=== PATIENT | female | born 1980 | race Caucasian/White ===

== ENCOUNTER 2016-11-10 16:15 | Inpatient (IN) | payer BC, OTHER ==
[~2016-11-10] VITALS: Ht 162.6 cm; Wt 74.8 kg
[2016-11-10 21:00] VITALS: BP 133/78
[2016-11-10] MEDS ORDERED: CLONIDINE HCL 0.1 MG TABLET PO PRN (21:00)
[2016-11-10] MEDS ORDERED: LOPERAMIDE HCL 2 MG CAPSULE PO PRN ×2 (21:00)
[2016-11-10] MEDS ORDERED: MIRALAX 17 GM POWD.PACK PO PRN (21:00)
[2016-11-10] MEDS ORDERED: ONDANSETRON 4 MG/2 ML VIAL IM PRN (21:00)
[2016-11-10] MEDS ORDERED: PATIENT MAY USE OWN MED- MD OK PO SCH (21:00)
[2016-11-10] MEDS ORDERED: ACETAMINOPHEN 325 MG TABLET PO PRN (21:00)
[2016-11-10] MEDS ORDERED: LORAZEPAM 2 MG/1 ML VIAL IM PRN (21:00)
[2016-11-10] MEDS ORDERED: DICYCLOMINE HCL 20 MG TABLET PO PRN (21:00)
[2016-11-10] MEDS ORDERED: MAG HYDROX/AL HYDROX/SIMETH 30 ML LIQUID UDC PO PRN (21:00)
[2016-11-10] MEDS ORDERED: diphenhydrAMINE 50 MG CAPSULE PO PRN (21:00)
[2016-11-10] MEDS ORDERED: IBUPROFEN 600 MG TABLET PO PRN (21:00)
--- NOTE | 2016-11-10 21:00 | NUR ---
Pre-Assessment Patient seen in intake office and patient noted to be stable with no visible signs of withdrawal noted. Patients vital signs rendered and noted as 133/78, 60, 18, 97.9, 99%, 0/10. Patient verbalized allergies to PCN, Bee venom, Horse Dander, and Shellfish. Patient noted with several home medications. Patient was explained the policies and procedures of medical disposal. Patient was able to verbalize understanding. All questions answered. Will continue with admission process on unit.
[2016-11-10] MEDS ORDERED: DULO60CA45 PO (21:45)
[2016-11-10] MEDS ORDERED: LAMO200T PO (21:45)
[2016-11-10 21:54] LABS: *URINE HCG, QUAL NEGATIVE (NEGATIVE)
--- NOTE | 2016-11-10 22:00 | NUR ---
Admission Patient is a 36 year old female from [facility], admitted to [facility] to receive treatment for her Opiate Dependence. Patient is ambulatory with no assistance needed. Patient was escorted on to unit by female BOAT ENGINE MECHANIC where body check was rendered. Skin check rendered with skin noted intact. Patient verbalizes allergies to PCN, Bee venom, Horse Dander, and Shellfish, wishes to be full code, following a regular diet. Height noted as 54 and weight noted as 165lbs. Breathing is even and non labored with no signs of SOB. BUE and BLE noted to be WNL with no edema noted. Lung sounds clear with no cough noted. Bowel sounds are active in all 4 quadrants with LBM noted 11/10/16. Patient verbalizes past medical history as History of Seizures (mar 2013), Fibromyalgia, Osteoarthritis, Anxiety, Bipolar, Depression. Home Medications reconciled. Patient denies any suicidal ideations. She describes her usage as: 1. Methadone, for the past 3 years, slowly tapering to 36mg Daily with last dose noted 11/10/16 0800 36mg Patient explains signs and symptoms as "nausea, vomiting, anxiety, lethargic, body aches, joint aches, and really bad chills." Patient lives in [facility] and is currently unemployed. Admission COWS noted to be 0. All information reviewed with Dr. Sage. All needs attended to promptly. Will continue plan of care as ordered.
[2016-11-10 22:05] LABS: *AMPHETAMINE, URINE NEGATIVE (NEGATIVE); *BARBITURATE, URINE NEGATIVE (NEGATIVE); *CANNABINOID, URINE NEGATIVE (NEGATIVE); *COCCAINE, URINE NEGATIVE (NEGATIVE); *OPIATE, URINE NEGATIVE (NEGATIVE); *PHENCYCLIDINE SCREEN,URINE NEGATIVE (NEGATIVE)
[2016-11-10 22:11] LABS: ETHANOL < 3 MG/DL (0-0)
[2016-11-10 22:14] LABS: ALANINE AMINOTRANSFERASE 21 U/L (14-59); ALKALINE PHOSPHATASE 65 U/L (50-136); ASPARTATE AMINOTRANSFERASE 18 U/L (15-37); BASOPHILS # (AUTO) 0.1 K/uL (0.0-8.0); BASOPHILS % (AUTO) 0.5 % (0.0-2.0); BILIRUBIN,TOTAL 0.2 mg/dL (0.2-1.0); CARBON DIOXIDE 31 mmol/L (21-32); CHLORIDE 103 mmol/L (98-107); EOSINOPHILS # (AUTO) 0.2 K/uL (0.0-0.7); EOSINOPHILS % (AUTO) 2.2 % (0.0-7.0); GLUCOSE 95 mg/dL (74-106); HEMATOCRIT 38.3 % (37-47); LYMPHOCYTES # (AUTO) 3.7 K/UL (0.8-4.8); LYMPHOCYTES % (AUTO) 35.8 % (20.5-51.5); MAGNESIUM 1.8 mg/dL (1.8-2.4); MEAN CORPUSCULAR HEMOGLOBIN 32.7 UUG (27.0-31.0); MEAN CORPUSCULAR HGB CONC 34 g/dL (32.0-37.0); MONOCYTES # (AUTO) 0.7 K/UL (0.1-1.30); MONOCYTES % (AUTO) 6.6 % (0.0-11.0); NEUTROPHILS # (AUTO) 5.6 K/UL (1.8-8.9); NEUTROPHILS % (AUTO) 54.9 % (38.5-71.5); PLATELET COUNT (AUTO) 394 K/UL (150-450); POTASSIUM 3.6 mmol/L (3.5-5.1); RED BLOOD CELL COUNT(AUTO) 3.99 MIL/UL (4.2-5.4); TOTAL PROTEIN, SERUM 7.7 g/dL (6.4-8.2); UREA NITROGEN, BLOOD 19 mg/dL (7-18); WHITE BLOOD COUNT (AUTO) 10.3 K/UL (4.0-11.2)
[2016-11-10 23:00] VITALS: BP 128/82
[2016-11-10] MEDS: LORAZEPAM 1 MG TABLET PO PRN (23:01)
[2016-11-10] MEDS: LAMOTRIGINE 200 MG TABLET PO SCH (23:01)
--- NOTE | 2016-11-10 23:01 | NUR ---
PRN Medication Administration Patient noted to be very restless, verbalizing increased anxiety, and agitation. PRN Ativan 2mg administered as per orders. Will continue to monitor.
[2016-11-10] MEDS ORDERED: LORAZEPAM 1 MG TABLET ONE (23:11)
[2016-11-10] MEDS ORDERED: LAMOTRIGINE 200 MG TABLET ONE (23:12)
[2016-11-11] VITALS (7 sets, daily range): BP systolic 96–124; BP diastolic 51–77
--- NOTE | 2016-11-11 00:15 | NUR ---
PRN Medication Reassessment Patient noted in bed watching TV. Breathing even and non labored. No signs of pain or discomfort noted. Patient is able to verbalize the medication really helped me calm down. I just worked so hard to no smoke and Im worried that I will go back to smoking Allowed patient to verbalize feelings and offered support. Patient was receptive. PRN Ativan noted to be effective. All needs attended to promptly. Will continue to monitor.
[2016-11-11] MEDS ORDERED: GABA-534 PO (04:03)
[2016-11-11] MEDS ORDERED: BETA15CR4 TP (04:03)
[2016-11-11] MEDS ORDERED: DICL2SOL TP (04:03)
[2016-11-11] MEDS ORDERED: EPIN0.3A3 IM (04:03)
[2016-11-11] MEDS ORDERED: VALA100026 PO (04:03)
[2016-11-11] MEDS ORDERED: DULO60CA45 PO (04:03)
[2016-11-11] MEDS ORDERED: LUBI24CA5 PO (04:03)
[2016-11-11] MEDS ORDERED: TRIA1TAB5 PO (04:03)
[2016-11-11] MEDS ORDERED: PREG100C PO (04:03)
[2016-11-11] MEDS ORDERED: POLY10DR3 EACHEYE (04:03)
[2016-11-11] MEDS ORDERED: LAMO200T PO (04:03)
--- NOTE | 2016-11-11 07:10 | NUR ---
End of Shift Patient is in bed sleeping but easily aroused to verbal stimuli. Breathing even and non labored. No signs of pain or discomfort noted. Patient is a 36 year old female admitted on 11/10/16 for Opiate Dependence. Patient noted using methadone and Taper medication will be held for minimum 48 hours after last dose and COWS must be >/12 before administration. Patient verbalizing allergies to PCN, Bee venom, horse dander, and Shellfish, wishes to be full code, following a regular diet, skin noted intact, and placed on fall and seizure precautions. Past medical history of Fibromyalgia, osteoarthritis, anxiety, Bipolar, depression, and history of SZ with last one noted Mar 2015. Patient was given PRN Ativan 2 mg for increased agitation and anxiety with medication noted to be effective. All needs attended to promptly. Will continue plan of care as ordered.
--- NOTE | 2016-11-11 07:30 | NUR ---
START OF SHIFT Pt is a 36 yr old female, A&Ox3. Pt was admitted on 11/10/16 for Methadone Dependence. Pt received Ativan PRN during the night for anxiety. Medication was effective. Pt slept for 5 hrs. Pt is currently in bed resting with respirations even and unlabored. No acute distress noted. Pt states she is "fine" this morning. Skin is intact, warm and dry to touch. No tremors seen or felt. Pt denies any n/v. Safety precautions observed. Call light is within reach. Will continue to monitor.
[2016-11-11] MEDS ORDERED: TUBERCULIN,PURIF.PROT.DERIV. 5 TU/0.1 ML TEST ID ONE (09:00)
[2016-11-11] MEDS: DULOXETINE 60 MG CAPSULE.DR PO SCH (09:01)
[2016-11-11] MEDS: LAMOTRIGINE 200 MG TABLET PO SCH ×2 (09:02→21:26)
[2016-11-11] MEDS: MULTIVITAMINS,THERAPEUTIC TABLET PO SCH (09:02)
[2016-11-11] MEDS: LYRICA 100 MG PO SCH (09:21)
[2016-11-11] MEDS: METHOCARBAMOL 750 MG TABLET PO PRN (09:21)
--- NOTE | 2016-11-11 09:21 | NUR ---
PRN GIVEN Pt c/o generalized pain 05/19 due to her fibromyalgia. Motrin 600mg PO PRN and Robaxin 750mg PO PRN was given as ordered. Medication shon well. Encouraged increase fluid intake. Will continue to monitor.
[2016-11-11] MEDS: LORAZEPAM 1 MG TABLET PO PRN (10:17)
--- NOTE | 2016-11-11 10:21 | NUR ---
PRN GIVEN/ PRN RE-ASSESSMENT Pt c/o anxiety with agitation. Pt is observed with fine tremors. Ativan 2mg PO PRN was given as ordered at 1017. Medication shon well. Motrin PRN and Robaxin PRN was effective. Pt denies any pain or discomfort at this time. Encouraged increase fluid intake. Will continue to monitor.
--- NOTE | 2016-11-11 11:21 | NUR ---
PRN RE-ASSESSMENT Ativan PRN was effective for anxiety. Pt attended group sessions to cope with anxiety level. Will continue to monitor.
--- NOTE | 2016-11-11 14:13 | NUR ---
PRN GIVEN Pt c/o left wrist pain 10/19. Toradol 30mg IM PRN was given as ordered. Medication shon well. Encouraged increase fluid intake.
[2016-11-11] MEDS: BACLOFEN 10 MG TABLET PO SCH ×2 (14:27→21:26)
[2016-11-11] MEDS: CLONIDINE HCL 0.1 MG TABLET PO SCH ×2 (14:27→21:26)
[2016-11-11] MEDS: KETOROLAC TROMETHAMINE 30 MG INJ IM PRN (14:39)
[2016-11-11] MEDS ORDERED: LORAZEPAM 1 MG TABLET PO ONE (17:15)
[2016-11-11] MEDS: NICOTINE POLACRILEX 4 MG GUM-PK OF TEN BC PRN (17:29)
--- NOTE | 2016-11-11 19:10 | NUR ---
END OF SHIFT Pt is a 36 yr old female, A&Ox3. Pt was admitted on 11/10/16 for Methadone Dependence. Pt received Ativan 2mg x1 in the morning and Ativan 1mg one time order at 1700 for increase anxiety. Medication was effective. Last COWS score was 3 at 1600. Pt did not attend group sessions and remained in her room throughout the day. Skin is intact, warm and dry to touch. No tremors seen or felt. Pt denies any n/v. Safety precautions observed. Call light is within reach.
--- NOTE | 2016-11-11 19:20 | NUR ---
Start of Shift Patient Received. Patient is in bed sleeping. Breathing even and on labored. No signs of pain or discomfort noted. Patient is a 36 year old female admitted on 11/10/16 for Opiate Dependence. Patient noted to be using methadone and Taper medication will be held for minimum 48 hours after last dose and COWS must be >/12 before administration. Patient verbalizing allergies to PCN, Bee venom, horse dander, and Shellfish, wishes to be full code, following a regular diet, skin noted intact, and placed on fall and seizure precautions. Past medical history of Fibromyalgia, osteoarthritis, anxiety, Bipolar, depression, and history of SZ with last one noted Mar 2015. Per endorsement, patient was given PRN Ativan 2mg, Ativan 1mg, and PRN Toradol with all medications noted to be effective. All needs attended to promptly. Will continue plan of care as ordered.
[2016-11-11] MEDS: GABAPENTIN 300MG PO SCH (21:26)
[2016-11-12 00:15] VITALS: BP 94/56
[2016-11-12 04:38] VITALS: BP 99/63
[2016-11-12] MEDS: NICOTINE POLACRILEX 4 MG GUM-PK OF TEN BC PRN ×2 (06:38→21:56)
--- NOTE | 2016-11-12 07:08 | NUR ---
End of Shift Patient is in bed, awake, alert and watching TV. Breathing even and non labored. No signs of pain or discomfort noted. Patient is a 36 year old female admitted on 11/10/16 for Opiate Dependence. Patient noted using methadone and Taper medication will be held for minimum 48 hours after last dose and COWS must be >/12 before administration. Patient verbalizing allergies to PCN, Bee venom, horse dander, and Shellfish, full code, regular diet, skin noted intact, and placed on fall and seizure precautions. Past medical history of Fibromyalgia, osteoarthritis, anxiety, Bipolar, depression, and history of SZ with last one noted Mar 2015. Patient was given PRN Nicotine Gum. All needs attended to promptly. Will continue plan of care as ordered.
--- NOTE | 2016-11-12 07:45 | NUR ---
Start of Shift Notes: Received patient in her room. Alert and oriented x 4. Verbally responsive. Able to make needs known. Verbalizes "i feel like cramp and I have high anxiety right now." Respirations even and unlabored. No SOB noted. Skin warm and dry to touch. Abdomen soft and non-distended with (+) BS in all 4 quadrants. No complains of N/V/D or constipation noted. Voids independently. Denies dysuria. Bladder non-distended. Ambulatory ad marlyn with steady gait. Patient is a 36 year old female admitted for methadone dependence who is on PRNs at this time. Prior to admission, patient was using 36 mg of methadone daily x 3 years. Has past medical hx of seizures, fibromyualgia, osteoarthritis, anxiety, bipolar disorder, depression. Has allergies to PCN, bees, dander and shellfish. FULL CODE. Regular diet. On fall and seizure precautions. Educated patient on his current plan of care for the day and his medication regimen. Encouraged oral fluid intake and encouraged group participation to learn new skills to prevent relapse. Will continue to monitor closely.
[2016-11-12 08:00] VITALS: BP 117/65
[2016-11-12] MEDS: DULOXETINE 60 MG CAPSULE.DR PO SCH (08:08)
[2016-11-12] MEDS: KETOROLAC TROMETHAMINE 30 MG INJ IM PRN (08:08)
[2016-11-12] MEDS: CLONIDINE HCL 0.1 MG TABLET PO SCH ×3 (08:08→21:03)
[2016-11-12] MEDS: MULTIVITAMINS,THERAPEUTIC TABLET PO SCH (08:08)
[2016-11-12] MEDS: FAMOTIDINE 20 MG TABLET PO SCH (08:08)
--- NOTE | 2016-11-12 08:08 | NUR ---
PRN Toradol given: Patient noted with complain of 7/10 genealized muscle aches. Unable to be relieved with non-pharmacological intervention. Medicated patient with Toradol 30 mg IM as ordered. Will monitor for effectiveness.
[2016-11-12] MEDS: LAMOTRIGINE 200 MG TABLET PO SCH ×2 (08:09→21:03)
[2016-11-12] MEDS: LYRICA 100 MG PO SCH (08:09)
[2016-11-12] MEDS: BACLOFEN 10 MG TABLET PO SCH ×3 (08:09→21:02)
--- NOTE | 2016-11-12 08:38 | NUR ---
Re-assessment: Per patient, PRN Toradol was mildly effective in reducing patient's pain. PL 4/10.
[2016-11-12] MEDS: HYDROXYZINE PAMOATE 25 MG CAPSULE PO PRN (09:05)
--- NOTE | 2016-11-12 09:05 | NUR ---
Vistaril 50 mg PO given: Patient on routine Clonidine for anxiety and agitation, however, patient verbalizes "I feel like I am having a panic attack." Patient is sobbing and restless, pacing and agitated. Medicated patient with Vistaril 50 mg PO as ordered. Will monitor for effectiveness.
--- NOTE | 2016-11-12 09:11 | NUR ---
MD Communication: Patient noted with COWS 16, noted with restlessness, anxious, agitated, with sweats. Notified MD Sage and gave orders to administer x 1 dose of Subutex 2 mg SL x 1 now. is away from a computer and unable to enter in orders. Orders noted and carried out.
[2016-11-12] MEDS ORDERED: BUPRENORPHINE HCL 2 MG TAB.SUBL SL ONE ×2 (09:15→10:30)
--- NOTE | 2016-11-12 09:24 | NUR ---
Subutex 2 mg SL x 1 given: COWS 16, one time Subutex 2 mg SL given at this time. Will monitor for effectiveness.
--- NOTE | 2016-11-12 09:54 | NUR ---
Re-assessment: Subutex 4 mg SL Per patient, PRN Subutex was effective in reducing patient's withdrawal symptoms. COWS 9.
--- NOTE | 2016-11-12 10:05 | NUR ---
Re-assessment: Vistaril Patient is laying in bed with eyes closed. Breathing even and unlabored. No sign of anxiety, or restlessness noted. PRN Vistaril was effective in reducing anxiety.
--- NOTE | 2016-11-12 10:44 | NUR ---
MD Visit: Dr. Sage in to see the patient at this time. Ordered x 1 more Subutex 2mg SL and patient is to start modified Subutex taper today at 1300.
--- NOTE | 2016-11-12 10:56 | NUR ---
OT Subutex 2 mg SL given: Patient given OT Subutex 2mg SL x1 per MD orders for COWS 9. Will monitor for effectiveness.
[2016-11-12 11:07] LABS: HEPATITIS B SURFACE AG Negative (Negative)
--- NOTE | 2016-11-12 11:26 | NUR ---
Re-assessment: OT Subutex 2 mg SL COWS 5, patient noted with less anxiety, less chills and hot flashes, muscle aches and pains, able to sit still. Will continue to monitor closely.
[2016-11-12 12:00] VITALS: BP 99/65
[2016-11-12] MEDS: BUPRENORPHINE HCL 2 MG TAB.SUBL SL SCH ×3 (12:08→21:03)
[2016-11-12] MEDS: NICOTINE 7 MG/24HR PATCH TD SCH (12:12)
--- NOTE | 2016-11-12 12:13 | NUR ---
Nicotine patch not adminstered: Patient requested for Nicotine patch to be started tomorrow AM. Patient verbalized that she would continue to smoke cigarettes today. Smoking cessation education provided.
--- NOTE | 2016-11-12 12:14 | NUR ---
Taper initiated: Modified 5-day Subutex taper initiated at this time. COWS 9.
[2016-11-12 16:00] VITALS: BP 107/70
[2016-11-12] MEDS: IBUPROFEN 800 MG TABLET PO PRN (16:47)
--- NOTE | 2016-11-12 16:47 | NUR ---
Motrin 800 mg PO given: Patient complained of 6/10 generalized pain related to fibromyalgia. Non-pharmacological interventions were provided but ineffective. Medicated patient with Motrin 800 mg PO as ordered. Will monitor for effectiveness.
--- NOTE | 2016-11-12 17:47 | NUR ---
Re-assessment: Per patient, PRN Motrin was effective in reducing pain. PL 2.
--- NOTE | 2016-11-12 19:13 | NUR ---
End of Shift Notes: Patient initiated her modified 5-day Subutex taper today. She is tolerating it well. No adverse reactions noted. VS monitored closely. No significant abnormalities noted. Patients withdrawal symptoms were closely monitored. Initial COWS 8 then increased to 16, patient presented with anxiety, agitation, restlessness, muscle aches and pains. Medicated patient with Toradol 30 mg IM at 0808 with help after 30 minutes and Vistaril 60 mg PO at 0905 with mild help after 1 hour. At 0924, patient was medicated with Subutex 2 mg SL x 1 for COWS 16, then another dose of Subutex 2 mg SL at 1056 with help after 30 minutes. Patients taper was initiated at 1300 today. Last COWS 6. No adverse reactions noted. New order for nicotine patch obtained. Compliant with care and treatment. All needs met and attended. Will continue to monitor closely.
[2016-11-12 20:00] VITALS: BP 100/65
--- NOTE | 2016-11-12 20:00 | NUR ---
START OF SHIFT NOTE PATIENT ALERT AND ORIENTED X 4. RESPIRATION EVEN AND UNLABORED. PATIENT C/O ANXIETY, SWEATING . TREMORS , ABDOMINAL CRAMPING AND BODY ACHES 4/10. PATIENT STATES SHE FEELS MUCH BETTER COMPARE THIS MORNING. PATIENT STATES SHE ATTENDED 1 GROUP AND HER APPETITE IS GOOD. RECEIVED REPORT FROM DAY SHIFT NURSE. PATIENT IS A 36 YEAR OLD FEMALE, ADMITTED FOR OPIATE DEPENDENCE.PATIENT IS ALLERGIC TO PENICILLIN ,HORSE DANDER AND SHELLFISH. PATIENT IS ON MODIFIED 5 DAY SUBUTEX TAPER, STARTED TODAY. PATIENT WAS C/O ANXIETY , RESTLESSNESS ,AGITATION AND ACHES . PATIENT WAS GIVEN PRN SUBUTEX ,VISTARIL, TORADOL AND MOTRIN X 2. PATIENT COMPLIANT WITH MEDS AND CARE. SKIN INTACT. ON FALL/SEIZURE PRECAUTION. SAFETY MEASURES IN PLACE. CALL LIGHT IN REACH.WILL CONTINUE TO MONITOR.
[2016-11-12] MEDS: GABAPENTIN 300MG PO SCH (21:02)
[2016-11-12] MEDS ORDERED: BUPRENORPHINE HCL 2 MG TAB.SUBL SL PRN (21:15)
[2016-11-12] MEDS: METHOCARBAMOL 750 MG TABLET PO PRN (21:56)
--- NOTE | 2016-11-12 21:56 | NUR ---
PRN NICOTINE GUM AND ROBAXIN ADMINISTRATION PATIENT C/O BODY ACHES 4/10 AND REQUESTS FOR NICOTINE GUM. PRN ROBAXIN AND NICOTINE GUM GIVEN. WILL MONITOR FOR EFFECTIVENESS
--- NOTE | 2016-11-12 22:56 | NUR ---
PRN ROBAXIN RE-ASSESSMENT PATIENT STATES ROBAXIN IS HELPFUL. NO PAIN AT THIS TIME. WILL CONTINUE TO MONITOR. NICOTINE GUM IS ALSO HELPFUL
[2016-11-13] VITALS: BP 94/53
[2016-11-13 04:00] VITALS: BP 92/54
--- NOTE | 2016-11-13 07:13 | NUR ---
END OF SHIFT NOTE PATIENT REMAIN ALERT AND ORIENTED X 4. RESPIRATION EVEN AND UNLABORED. PATIENT C/O ANXIETY, SWEATING . TREMORS , ABDOMINAL CRAMPING AND BODY ACHES / BEGINNING OF SHIFT. PATIENT STATES MEDICATIONS ARE EFFECTIVE IN CONTROLLING HER WITHDRAWAL SYMPTOMS. PATIENT STATES SHE ATTENDED 1 GROUP AND HER APPETITE IS GOOD. CONTINUE ON SUBUTEX TAPER, TOLERATED WELL. NO ADVERSE REACTION FOR OPIATE DEPENDENCE. PATIENT COMPLIANT WITH MEDICATION AND TREATMENT PLAN. SKIN INTACT. PATIENT WAS GIVEN PRN ROBAXIN AND NICOTINE GUM AT 2156. ON FALL/SEIZURE PRECAUTION. SAFETY MEASURES IN PLACE. CALL LIGHT IN REACH.WILL CONTINUE TO MONITOR. SLEPT 9 HOURS. FLUID INTAKE 500 ML. VOIDED X 1 . NO BM. LAST COWS 3.
--- NOTE | 2016-11-13 07:30 | NUR ---
START OF SHIFT Pt is a 36 yr old female, A&Ox3. Pt was admitted on 11/10/16 for Methadone Dependence and is on 5 day Subutex taper. Medication shon well. Pt slept for 9 hrs during the night. Pt is currently in bed resting with respirations even and unlabored.Pt is c/o mild lower back pain but is able to shon pain level at this time. Pt states of mild anxiety. Encouraged pt to attended group sessions during the day. Skin is intact, warm and dry to touch. No tremors seen or felt. Pt denies any n/v. Safety precautions observed. Call light is within reach. Will continue to monitor.
[2016-11-13 08:00] VITALS: BP 111/64
[2016-11-13] MEDS: NICOTINE 7 MG/24HR PATCH TD SCH (09:00)
[2016-11-13] MEDS: CLONIDINE HCL 0.1 MG TABLET PO SCH ×3 (09:13→21:00)
[2016-11-13] MEDS: DULOXETINE 60 MG CAPSULE.DR PO SCH (09:13)
[2016-11-13] MEDS: LAMOTRIGINE 200 MG TABLET PO SCH ×2 (09:13→22:10)
[2016-11-13] MEDS: BACLOFEN 10 MG TABLET PO SCH (09:13)
[2016-11-13] MEDS: MULTIVITAMINS,THERAPEUTIC TABLET PO SCH (09:13)
[2016-11-13] MEDS: FAMOTIDINE 20 MG TABLET PO SCH (09:13)
[2016-11-13] MEDS: BUPRENORPHINE HCL 2 MG TAB.SUBL SL SCH ×3 (09:14→22:07)
[2016-11-13] MEDS: LYRICA 100 MG PO SCH (09:17)
[2016-11-13] MEDS: IBUPROFEN 800 MG TABLET PO PRN ×2 (09:33→22:03)
--- NOTE | 2016-11-13 09:33 | NUR ---
PRN GIVEN Pt c/o lower back pain 08/19. Facial grimacing is observed. Motrin 800mg PO PRN was given as ordered. Medication shon well. Encouraged increase fluid intake. Will continue to monitor.
--- NOTE | 2016-11-13 10:33 | NUR ---
PRN RE-ASSESSMENT Motrin PRN was mildly effective. Pt continue to c/o lower back pain 07/19. Encouraged increase fluid intake. Will continue to monitor.
[2016-11-13] MEDS: NICOTINE POLACRILEX 4 MG GUM-PK OF TEN BC PRN (11:17)
[2016-11-13] MEDS: HYDROXYZINE PAMOATE 25 MG CAPSULE PO PRN (11:22)
[2016-11-13] MEDS: METHOCARBAMOL 750 MG TABLET PO PRN ×2 (11:28→22:03)
--- NOTE | 2016-11-13 11:40 | NUR ---
PRN MEDICATION GIVEN Pt c/o severe back pain, gas pain and anxiety. Pt was observed with facial grimacing. Vistaril 50mg PO PRN was given at 1122, Tylenol 650mg PO PRN and Robaxin 750mg PO PRN was given at 1128, Maalox 30ml PO PRN was given at 1137 and pt requested for Nicotine gum for smoking cessation. Medication was shon well. Encouraged pt to drink plenty of fluids for hydration. Pt was educated on pain mgt. Will continue to monitor.
[2016-11-13 12:00] VITALS: BP 143/98
[2016-11-13] MEDS ORDERED: BISACODYL 5 MG TABLET.DR PO PRN (12:30)
[2016-11-13] MEDS ORDERED: BUPRENORPHINE HCL 2 MG TAB.SUBL SL ONE (12:30)
[2016-11-13] MEDS ORDERED: BISACODYL 10 MG SUPP.RECT RC PRN (12:30)
[2016-11-13] MEDS ORDERED: SIMETHICONE 80 MG TAB.CHEW PO PRN (12:30)
[2016-11-13] MEDS ORDERED: MAGNESIUM HYDROXIDE 30 ML LIQUID UDC PO PRN (12:30)
--- NOTE | 2016-11-13 12:40 | NUR ---
MD COMMUNICATION Pt was emotional and crying in her room, stating "I don't feel good". Pt is c/o body aches 8/10 and increase anxiety. Fine tremors are observed. VS are WNL. COWS score is 11. Reported to Dr. Sage with new order for Subutex 4mh SL x1. New order was initiated my MD. Will continue to f/u.
[2016-11-13] MEDS: DOCUSATE SODIUM 250 MG CAPSULE PO SCH (12:48)
[2016-11-13] MEDS: BACLOFEN 20 MG TABLET PO SCH ×2 (15:17→22:10)
[2016-11-13] MEDS: PATIENT MAY USE OWN MED- MD OK PO SCH ×3 (15:17→22:03)
[2016-11-13] MEDS: KETOROLAC TROMETHAMINE 30 MG INJ IM PRN (15:32)
--- NOTE | 2016-11-13 15:32 | NUR ---
PRN GIVEN Pt c/o severe pain, generalize 8/10. Facial grimacing is observed. Toradol 30ml IM PRN was given as ordered. Medication shon well. Encouraged increase fluid intake. Will continue to monitor.
[2016-11-13 16:00] VITALS: BP 98/57
--- NOTE | 2016-11-13 19:15 | NUR ---
END OF SHIFT Pt is a 36 yr old female, A&Ox3. Pt was admitted on 11/10/16 for Methadone Dependence and is on 5 day Subutex taper as ordered. Pt received multiple PRN during the day for pain mgt. Pt was educated on non-pharmaceutical pain mgt. Pt needs further education. Last COWS score was 3 at 1600. Pt attended group sessions. Skin is intact, warm and dry to touch. No tremors seen or felt. Pt denies any n/v. Safety precautions observed. Call light is within reach.
[2016-11-13 20:00] VITALS: BP 104/60
--- NOTE | 2016-11-13 20:00 | NUR ---
START OF SHIFT NOTE PATIENT ALERT AND ORIENTED X 4. RESPIRATION EVEN AND UNLABORED. PATIENT REPORTS BODY ACHES MOSTLY ON HER BACK 09/18. , NAUSEA BUT REFUSED TO HAVE MEDICATION AT THIS TIME, ANXIETY BUT STATES SHE FEELS MUCH BETTER NOW. SHE STATES SHE ATTENDED GROUPS. RECEIVED REPORT FROM DAY SHIFT NURSE. PATIENT IS A 36 YEAR OLD FEMALE ADMITTED FOR OPIATE DEPENDENCE. CONTINUE ON MODIFIED 5 DAY SUBUTEX TAPER, TOLERATED WELL, NO ADVERSE REACTION. PATIENT WAS C/O BODY ACHES. PATIENT WAS GIVEN PRN TORADOL IM, MOTRIN, VISTARIL , ROBAXIN, MAALOX AND NICOTINE GUM. LAST COWS 2. ON FALL PRECAUTION. SAFETY MEASURES IN PLACE. CALL LIGHT IN REACH. WILL CONTINUE TO MONITOR.
--- NOTE | 2016-11-13 21:00 | NUR ---
CATAPRES HELD PATIENT'S CATAPRES HELD FOR PATIENT'S BP-104/60 AND HR 60. CATAPRES WITH ORDER TO HOLD IF BP LESS THAN 110/70 AND HR 70. WILL CONTINUE TO MONITOR
--- NOTE | 2016-11-13 22:03 | NUR ---
PRN MOTRIN/ROBAXIN ADMINISTRATION PATIENT C/O 09/18 PAIN, GENERALIZED BODY ACHES . PRN MOTRIN AND ROBAXIN GIVEN. WILL MONITOR FOR EFFECTIVENESS
--- NOTE | 2016-11-13 22:10 | NUR ---
PRN BENTYL ADMINISTRATION PATIENT C/O ABDOMINAL SPASM. PRN BENTYL GIVEN. WILL MONITOR FOR EFFECTIVENESS
--- NOTE | 2016-11-13 23:03 | NUR ---
PRN MOTRIN AND ROBAXIN RE-ASSESSMENT PATIENT STATES MOTRIN AND ROBAXIN HELPFUL PAIN LEVEL 2/10 AT THIS TIME AND TOLERABLE. WILL CONTINUE TO MONITOR
--- NOTE | 2016-11-13 23:10 | NUR ---
PRN BENTYL RE-ASSESSMENT PATIENT STATES ABDOMINAL CRAMPING IS LESS, TOLERABLE. BENTYL HELPFUL. WILL CONTINUE TO MONITOR
[2016-11-14] VITALS: BP 107/68
[2016-11-14 04:00] VITALS: BP_SYST 96
--- NOTE | 2016-11-14 07:16 | NUR ---
END OF SHIFT NOTE PATIENT REMAIN ALERT AND ORIENTED X 4. RESPIRATION EVEN AND UNLABORED. PATIENT REPORTED SEVERE ANXIETY, DENIES ANY PAIN AND N/V BEGINNING OF SHIFT. PATIENT WAS RESTLESS, AGITATED AND WITH SEVERE ANXIETY, CIWA WAS 7 , PRN ATIVAN GIVEN AND EFFECTIVE, PATIENT'S CIWA WENT DOWN TO 2. AT 0431, PATIENT C/O HEADACHE 6/10 AND ANXIETY. PRN MOTRIN AND VISTARIL GIVEN. ON FALL/SEIZURE PRECAUTION. SAFETY MEASURES IN PLACE. CALL LIGHT IN REACH. WILL CONTINUE TO MONITOR. SLEPT 6 HOURS. FLUID INTAKE 800 ML. VOIDED X 3.NO BM. LAST CIWA 2 . Addendum: 11/14/16 at 0722 by OMER BURROUGHS LVN ERROR: THIS CHARTING IS FOR ANOTHER PATIENT
--- NOTE | 2016-11-14 07:19 | NUR ---
Start of Shift Notes: Received patient in her room. Alert and oriented x 4. Verbally responsive. Able to make needs known. Respirations even and unlabored. No SOB noted. Skin warm and dry to touch. Abdomen soft and non-distended with (+) BS in all 4 quadrants. No complains of N/V/D or constipation noted. Voids independently. Denies dysuria. Bladder non-distended. Ambulatory ad marlyn with steady gait. Patient is a 36 year old female admitted for methadone dependence who is on PRNs at this time. Prior to admission, patient was using 36 mg of methadone daily x 3 years. Has past medical hx of seizures, fibromyualgia, osteoarthritis, anxiety, bipolar disorder, depression. Has allergies to PCN, bees, dander and shellfish. FULL CODE. Regular diet. On fall and seizure precautions. Educated patient on his current plan of care for the day and his medication regimen. Encouraged oral fluid intake and encouraged group participation to learn new skills to prevent relapse. Will continue to monitor closely.
--- NOTE | 2016-11-14 07:20 | NUR ---
START OF SHIFT NOTE PATIENT REMAIN ALERT AND ORIENTED X 4. RESPIRATION EVEN AND UNLABORED. PATIENT REPORTED BODY ACHES MOSTLY ON HER BACK 09/18. , NAUSEA BUT REFUSED TO HAVE MEDICATION AND ANXIETY BEGINNING OF SHIFT. PATIENT ATTENDED GROUPS. CONTINUE ON MODIFIED 5 DAY SUBUTEX TAPER, TOLERATED WELL, NO ADVERSE REACTION. PATIENT WAS GIVEN PRN MOTRIN AND ROBAXIN. CATAPRES HELD FOR BP LESS THAN 110/70 HR 70. ON FALL PRECAUTION. SAFETY MEASURES IN PLACE. CALL LIGHT IN REACH. WILL CONTINUE TO MONITOR. SLEPT 7 HOURS. FLUID INTAKE 1,105 ML. VOIDED X 3. NO BM. LAST COWS 1 . Addendum: 11/14/16 at 0722 by OMER BURROUGHS LVN END OF SHIFT NOTE
[2016-11-14 08:00] VITALS: BP 112/69
[2016-11-14] MEDS: IBUPROFEN 800 MG TABLET PO PRN ×2 (08:34→20:54)
[2016-11-14] MEDS: LYRICA 100 MG PO SCH (08:34)
--- NOTE | 2016-11-14 08:34 | NUR ---
Motrin 800 mg PO given: Patient complained of 8/10 pain to her fingers and her lower back related to fibromyalgia and her withdrawal symptoms. Non-pharmacological interventions were provided but ineffective. Medicated patient with Motrin 800 mg PO as ordered. Will monitor for effectiveness.
[2016-11-14] MEDS: CLONIDINE HCL 0.1 MG TABLET PO SCH ×3 (08:35→20:46)
[2016-11-14] MEDS: MULTIVITAMINS,THERAPEUTIC TABLET PO SCH (08:36)
[2016-11-14] MEDS: BACLOFEN 20 MG TABLET PO SCH ×3 (08:36→20:45)
[2016-11-14] MEDS: DOCUSATE SODIUM 250 MG CAPSULE PO SCH (08:36)
[2016-11-14] MEDS: FAMOTIDINE 20 MG TABLET PO SCH (08:36)
[2016-11-14] MEDS: LAMOTRIGINE 200 MG TABLET PO SCH ×2 (08:36→20:45)
[2016-11-14] MEDS: PATIENT MAY USE OWN MED- MD OK PO SCH ×5 (08:37→20:55)
[2016-11-14] MEDS: DULOXETINE 60 MG CAPSULE.DR PO SCH (08:37)
[2016-11-14] MEDS: NICOTINE 7 MG/24HR PATCH TD SCH (08:38)
--- NOTE | 2016-11-14 08:38 | NUR ---
Nicotine patch at 0900 not administered: Patient refused Nicotine patch at this time. Patient verbalized that she would continue to smoke cigarettes. Smoking cessation education provided. Will continue to offer the patch and discourage smoking.
[2016-11-14] MEDS ORDERED: BUPRENORPHINE HCL 2 MG TAB.SUBL SL SCH (09:00)
--- NOTE | 2016-11-14 09:34 | NUR ---
Re-assessment: Per patient, PRN Motrin was effective in reducing patient's pain. PL 3.
[2016-11-14 12:00] VITALS: BP 108/61
[2016-11-14] MEDS ORDERED: BUPRENORPHINE HCL 2 MG TAB.SUBL SL ONE (13:00)
[2016-11-14] MEDS: KETOROLAC TROMETHAMINE 30 MG INJ IM PRN (13:21)
--- NOTE | 2016-11-14 13:21 | NUR ---
Toradol 30 mg IM given: Patient complained of 8/10 pain to lower back. Medicated patient with Toradol 30 mg IM as ordered. Will monitor for effectiveness. Heat packs provided with no help.
--- NOTE | 2016-11-14 13:21 | NUR ---
Subutex 4 mg SL given: OT order for Subutex 4 mg SL given at this time per MDs orders. Will monitor for effectiveness.
[2016-11-14] MEDS: LIDOCAINE 5% PATCH TD SCH (13:24)
--- NOTE | 2016-11-14 13:51 | NUR ---
Re-assessment: Subutex/Toradol Per patient, PRN Toradol was effective in reducing patient's PL. Verbalizes PL 4/10. Per patient, OT Subutex 4 mg SL was effective in reducing the patient's withdrawal symptoms. COWS 4.
[2016-11-14] MEDS: BUPRENORPHINE HCL 2 MG TAB.SUBL SL SCH ×2 (14:38→20:46)
[2016-11-14] MEDS: DICYCLOMINE HCL 20 MG TABLET PO SCH ×2 (14:38→20:45)
[2016-11-14] MEDS: ACETAMINOPHEN 325 MG TABLET PO SCH ×2 (14:38→20:54)
[2016-11-14 16:00] VITALS: BP 106/51
--- NOTE | 2016-11-14 18:53 | NUR ---
End of Shift Notes: Patient initiated her modified 5-day Subutex taper today. She is tolerating it well. No adverse reactions noted. VS monitored closely. No significant abnormalities noted. Patients withdrawal symptoms were closely monitored. Initial COWS 9, patient presented with anxiety, myalgia, chills, hot flashes and nausea. Last COWS 4. No adverse reactions noted. Medicated patient with Motrin 800 mg PO at 0834 with help after 1hour. At 1321, patient received x 1 dose of Subutex 4 mg SL and Toradol 30 mg IM for pain with help after 1 hour. Refused Nicotine patch in AM. Participated in group and activities despite her withdrawal symptoms. All needs met and attended. Will continue to monitor closely.
--- NOTE | 2016-11-14 19:25 | NUR ---
Start of shift notes: Received patient in bed, awake, alert, and oriented x4. Calm and cooperative with care. Encouraged patient to verbalize feelings and concerns. Denies SI/HI/AVH. Speech is clear and able to make needs known. Patient on 5 day modified Subutex taper and tolerating well. No adverse reaction noted at this time. Will continue to monitor behavior and medication effectiveness while MD titrate medication.
[2016-11-14 20:00] VITALS: BP 105/54
--- NOTE | 2016-11-14 21:00 | NUR ---
Administered Ibuprofen 800mg for generalized pain. Pain refused her routine tylenol 650mg. Effective after one hour.
[2016-11-15] VITALS: BP 124/66
[2016-11-15] MEDS: KETOROLAC TROMETHAMINE 30 MG INJ IM PRN ×2 (01:03→17:00)
--- NOTE | 2016-11-15 01:14 | NUR ---
Administered Toradol 30mg PRN right deltoid for generalized pain. Mainly in the joints for adult scale 8/10
--- NOTE | 2016-11-15 04:12 | NUR ---
Patient asleep. Respiration even and unlabored. Refused COWS and vitals signs at this time. Will continue to monitor. Addendum: 11/15/16 at 0414 by IMER BRUNSON RN Amended: Links added.
--- NOTE | 2016-11-15 06:04 | NUR ---
End of shift Patient remained calm and cooperative with care. Slept 4 hours and 45 minutes. Administered Toradol for pain 8/10 on adult pain scale. Generalized body and joints pain. Tolerated well. Encouraged to verbalize feelings and concerns. Stated "I'm always in pain due to my Fibromyalgia. Denies SI/HI/AVH. No adverse reaction to medication noted at this time. Safety measures in place. Will continue to monitor behavior.
--- NOTE | 2016-11-15 07:00 | NUR ---
Start of Shift Report from the night nurse: pt is a 36 y/o female here for Opiate dependence r/t Methadone 36mg PO daily for 3 years; Modified 5 day Subutex taper started 11/12/16. Pt is a full code, regular diet allergic to bees, horse, shellfish and PCN, fall and seizure precautions ordered. HHx: seizure 2014 r/t w/d's, Fibromyalgia, Anxiety, Depression, Bipolar, MRSA, Osteoarthritis and relapse. V/S stable yet SB in sleep. Skin is intact. PRN Ibuprofen at 2200 H last night & then Toradol at 12am hour. Pt is asleep in room. Last COWS 4.
[2016-11-15 08:00] VITALS: BP 98/50
[2016-11-15] MEDS: PATIENT MAY USE OWN MED- MD OK PO SCH ×5 (09:00→20:47)
[2016-11-15] MEDS: NICOTINE 7 MG/24HR PATCH TD SCH (09:00)
[2016-11-15] MEDS: DICYCLOMINE HCL 20 MG TABLET PO SCH ×3 (09:00→21:00)
[2016-11-15] MEDS: LIDOCAINE 5% PATCH TD SCH (09:44)
[2016-11-15] MEDS: DOCUSATE SODIUM 250 MG CAPSULE PO SCH (09:44)
[2016-11-15] MEDS: BACLOFEN 20 MG TABLET PO SCH ×3 (09:45→20:56)
[2016-11-15] MEDS: LAMOTRIGINE 200 MG TABLET PO SCH ×2 (09:45→20:52)
[2016-11-15] MEDS: BUPRENORPHINE HCL 2 MG TAB.SUBL SL SCH ×3 (09:45→20:52)
[2016-11-15] MEDS: MULTIVITAMINS,THERAPEUTIC TABLET PO SCH (09:45)
[2016-11-15] MEDS: LYRICA 100 MG PO SCH (09:45)
[2016-11-15] MEDS: ACETAMINOPHEN 325 MG TABLET PO SCH (09:46)
[2016-11-15] MEDS: DULOXETINE 60 MG CAPSULE.DR PO SCH (09:46)
[2016-11-15] MEDS: CLONIDINE HCL 0.1 MG TABLET PO SCH ×3 (09:46→20:54)
[2016-11-15] MEDS: FAMOTIDINE 20 MG TABLET PO SCH (09:46)
[2016-11-15 12:00] VITALS: BP 106/60
[2016-11-15] MEDS: ACETAMINOPHEN ES 500 MG TABLET PO SCH ×2 (14:24→20:53)
[2016-11-15 16:00] VITALS: BP 103/57
[2016-11-15] MEDS: HCTZ PO SCH (16:50)
[2016-11-15] MEDS: TRIAMTERENE PO SCH (16:50)
[2016-11-15] MEDS: METHOCARBAMOL 750 MG TABLET PO PRN (16:56)
--- NOTE | 2016-11-15 17:05 | NUR ---
PRN Medication Administration Pt is getting ready to go to dinner but c/o muscle tension and generalized pain 5/10; PRN Robaxin 750mg and Toradol 30mg given as ordered. Will reassess in 1H.
--- NOTE | 2016-11-15 18:00 | NUR ---
Reassessment Pt denies pain and muscle tension; Toradol and Robaxin are effective. Will cont. to monitor the pt.
--- NOTE | 2016-11-15 18:46 | NUR ---
End of Shift Report to the night nurse: pt is a 36 y/o female here for Opiate dependence r/t Methadone 36mg PO daily for 3 years; Modified 5 day Subutex taper started 11/12/16. Pt is a full code, regular diet allergic to bees, horse, shellfish and PCN, fall and seizure precautions ordered. HHx: seizure 2014 r/t w/d's, Fibromyalgia, Anxiety, Depression, Bipolar, MRSA, Osteoarthritis and relapse. V/S stable yet SB in sleep. Skin is intact. No BM during my shift and pt c/o constipation but pt refused refused PRN Miralax, Bentyl both doses & Nicotine patch. PRN Robaxin 750mg and Toradol 30mg both given at 1700H. Last COWS 4.
[2016-11-15 20:00] VITALS: BP 130/70
--- NOTE | 2016-11-15 20:00 | NUR ---
Start of Shift Received a 36 y/o female awake sitting on bed. Admitted for Opiate dependence r/t Methadone 36mg PO daily for 3 years. Pt is a full code, regular diet allergic to bees, horse, shellfish and PCN, fall and seizure precautions ordered. PMHx: seizure 2013 r/t w/d's, Fibromyalgia, Anxiety, Depression, Bipolar, MRSA, Osteoarthritis and relapse. Complaints of right leg and left hand pain 6/10, and constipation. V/S stable. Last COWS 4. Will continue to monitor.
--- NOTE | 2016-11-15 20:54 | NUR ---
PRN Motrin Px complained of right leg and left hand pain 6-09/18. Motrin 800mg 1 tab given PO as PRN meds. will continue to monitor.
--- NOTE | 2016-11-15 21:00 | NUR ---
Bentyl 20mg Refusal Px refused to take Bentyl 20 mg PO as standing order. Px verbalized "It cant give me benefits".
[2016-11-16] VITALS: BP 101/65
--- NOTE | 2016-11-16 00:21 | NUR ---
PRN MOM Px complained of constipation and requested for Milk of Magnesia. MOM 30 ml given PO as PRN meds. Will continue to monitor.
--- NOTE | 2016-11-16 07:19 | NUR ---
End of Shift Px 36 y/o female here for Opiate dependence r/t Methadone 36mg PO daily for 3 years; Modified 5 day Subutex taper started 11/12/16. Pt is a full code, regular diet allergic to bees, horse, shellfish and PCN, fall and seizure precautions ordered. HHx: seizure 2014 r/t w/d's, Fibromyalgia, Anxiety, Depression, Bipolar, MRSA, Osteoarthritis and relapse. During the shift, px complained of right leg and left hand pain 6-7/10, PRN Motrin 800mg PO given reassessed after an hour, pain was 2/10. Px requested for MOM for constipation, PRN MOM 30 ml given PO. Bentyl 20mg 1 tab was refused. Slept for 8hrs, with fluid intake of 1,100ml, voided 2x, with no BM. V/S stable. Last COWS 4.
[2016-11-16 08:00] VITALS: BP 126/76
--- NOTE | 2016-11-16 08:15 | NUR ---
START OF SHIFT NOTE Px 36 y/o female here for Opiate dependence r/t Methadone 36mg PO daily for 3 years; Modified 5 day Subutex taper started 11/12/16. Pt is a full code, regular diet allergic to bees, horse, shellfish and PCN, fall and seizure precautions ordered. HHx: seizure 2013 r/t w/d's, Fibromyalgia, Anxiety, Depression, Bipolar, MRSA, Osteoarthritis and relapse. Pt reports pain 6-7/10 in hands, feet, toes due to neuralgia, reports tingling and numbness. Notified patient will assess for prn medication for pain control. PT states given MOM last night but no BM yet, given prune juice. Reports anxiety 3/10 but did not want medication for anxiety. Safety measures in place, call light in reach, bed locked and in low position, call light within reach. Will continue to monitor.
--- NOTE | 2016-11-16 08:45 | NUR ---
Medication held Held subutex and clonidine d/t HR of 50, Dr Sage is aware, states he will be on the unit to assess the patient. Pt made aware. Will continue to monitor pt.
[2016-11-16] MEDS: NICOTINE 7 MG/24HR PATCH TD SCH (08:47)
[2016-11-16] MEDS: DICYCLOMINE HCL 20 MG TABLET PO SCH (09:00)
[2016-11-16] MEDS ORDERED: BUPRENORPHINE HCL 2 MG TAB.SUBL SL SCH (09:00)
[2016-11-16] MEDS: CLONIDINE HCL 0.1 MG TABLET PO SCH ×3 (09:00→21:58)
--- NOTE | 2016-11-16 09:00 | NUR ---
Medication refusal Pt refused zoe, Dr Sage aware.
[2016-11-16] MEDS: LYRICA 100 MG PO SCH (09:08)
[2016-11-16] MEDS: PATIENT MAY USE OWN MED- MD OK PO SCH ×5 (09:08→21:00)
[2016-11-16] MEDS: FAMOTIDINE 20 MG TABLET PO SCH (09:09)
[2016-11-16] MEDS: DULOXETINE 60 MG CAPSULE.DR PO SCH (09:09)
[2016-11-16] MEDS: ONDANSETRON ODT 4 MG TAB.RAPDIS SL PRN ×2 (09:09→10:28)
[2016-11-16] MEDS: KETOROLAC TROMETHAMINE 30 MG INJ IM PRN ×2 (09:10→21:59)
--- NOTE | 2016-11-16 09:10 | NUR ---
PRN administration Pt c/o pain 10/19 and nausea, administered PRN zofran and toradol per MD order, Dr Alona copeland to give. Will continue to monitor pt.
[2016-11-16] MEDS: BACLOFEN 20 MG TABLET PO SCH ×3 (09:11→21:57)
[2016-11-16] MEDS: LAMOTRIGINE 200 MG TABLET PO SCH ×2 (09:11→21:57)
[2016-11-16] MEDS: DOCUSATE SODIUM 250 MG CAPSULE PO SCH (09:11)
[2016-11-16] MEDS: ACETAMINOPHEN ES 500 MG TABLET PO SCH ×3 (09:11→21:57)
[2016-11-16] MEDS: MULTIVITAMINS,THERAPEUTIC TABLET PO SCH (09:11)
--- NOTE | 2016-11-16 09:40 | NUR ---
Reassessment Pt states that the medication was effective in alleviating her nausea, states that she still has muscle aches and pain 06/19, but states "I am comfortable at this time, I don't need or want anything". Will continue to monitor pt.
--- NOTE | 2016-11-16 10:15 | NUR ---
Late administration Subutex administered late, Dr Sage ok to give late and with HR of 50, ordered for clonidine to be held. Will continue to monitor pt. Pt requests to have lidocaine patch after she showers, Dr Sage aware.
--- NOTE | 2016-11-16 11:22 | NUR ---
PRN ADMINISTRATION Given Vistaril for anxiety 08/19.
[2016-11-16] MEDS ORDERED: DICYCLOMINE HCL 20 MG TABLET PO PRN (11:30)
[2016-11-16 12:00] VITALS: BP 106/56
--- NOTE | 2016-11-16 12:22 | NUR ---
REASSESSMENT Reports decrease in anxiety 05/19
[2016-11-16] MEDS: METHOCARBAMOL 750 MG TABLET PO PRN (12:51)
--- NOTE | 2016-11-16 12:51 | NUR ---
PRN ADMINISTRATION Given Robaxin for back pain 08/19.
[2016-11-16] MEDS: LIDOCAINE 5% PATCH TD SCH (12:52)
[2016-11-16] MEDS ORDERED: FUROSEMIDE 20 MG TABLET PO ONE (13:00)
--- NOTE | 2016-11-16 13:21 | NUR ---
approved giving Lasix with this blood pressure. Addendum: 11/16/16 at 1323 by CALDERON LUO RN Amended: Links added.
--- NOTE | 2016-11-16 13:51 | NUR ---
REASSESSMENT Reports back pain 05/19
[2016-11-16] MEDS ORDERED: METH-406 PO (16:04)
[2016-11-16] MEDS ORDERED: ACET-2605 PO (16:04)
[2016-11-16] MEDS ORDERED: FAMO20TA8 PO (16:04)
[2016-11-16] MEDS ORDERED: NICO1PAT46 TD (16:04)
[2016-11-16] MEDS ORDERED: CLON0.1T14 PO (16:04)
[2016-11-16] MEDS ORDERED: DIPH50CA37 PO (16:04)
[2016-11-16] MEDS ORDERED: NICO4GUM38 BC (16:04)
[2016-11-16] MEDS ORDERED: LIDO30AD10 TD (16:04)
[2016-11-16] MEDS ORDERED: IBUP-1957 PO (16:04)
[2016-11-16] MEDS ORDERED: DICY20TA28 PO (16:04)
[2016-11-16] MEDS ORDERED: HYDR-3895 PO (16:04)
[2016-11-16] MEDS ORDERED: BACL20TA PO (16:04)
[2016-11-16] MEDS ORDERED: GABA-534 PO (16:05)
[2016-11-16] MEDS: TRIAMTERENE PO SCH (16:43)
[2016-11-16] MEDS: HCTZ PO SCH (16:43)
[2016-11-16 16:53] VITALS: BP 106/65
--- NOTE | 2016-11-16 19:29 | NUR ---
END OF SHIFT NOTE 36 y/o female here for Opiate dependence r/t Methadone 36mg PO daily for 3 years; Modified 5 day Subutex taper started 11/12/16 and completed on 11/16/16 without any ASE. Pt is a full code, regular diet allergic to bees, horse, shellfish and PCN, fall and seizure precautions ordered. HHx: seizure 2014 r/t w/d's, Fibromyalgia, Anxiety, Depression, Bipolar, MRSA, Osteoarthritis and relapse. CIWA scores of 6 at 0906 and at 1244. CIWA 4 at 1654. Fluid intake 3529 ml, void x 5, stool x 3. Appetite improved with eating 50 % at breakfast but then 75 % at lunch and dinner. PRN Zofran given at 0909 with effective relief of nausea. PRN Toradol IM injection given at 0910 for pain 8/10 in back, hands, feet, with decrease in pain to 4/10 in 30 minutes. PRN Robaxin given at 1251 for back pain 6/10 with decrease to 3/10 one hour later. Pt also had a onetime dose of lasix for generalized edema. PRN Vistaril at given at 1122 for anxiety with verbalized relief in one hour. Pt participated in group and activities during the shift, pt verbalizing her plan for treatment and on ways to remain sober. Pt states that she is very motivated to stay clean and sober. Pt has no complaints at this time. All needs addressed, SBAR report given to oncoming shift.
--- NOTE | 2016-11-16 19:30 | NUR ---
Start of shift note Received report from day shift nurse. Pt is a 36 yo female, A+Ox4, presenting to [facility] for Methadone dependence. Pt has Allergies to PCN, Bees, Horse dander, and Shellfish, is on Full Code status, and on Regular diet. Pt has HX of Seizure, Fibromyalgia, Osteoarthritis, Anxiety, Bipolar, Depression, and MRSA. Pt is on Fall and Seizure precautions. Pt has completed 5 day Subutex taper, tolerated well, and is due for discharge tomorrow. No s/s of distress noted at this time. Respirations even and unlabored. Will continue to monitor.
[2016-11-16 20:08] VITALS: BP 123/81
--- NOTE | 2016-11-16 21:59 | NUR ---
PRN Toradol Pt c/o general body pain 09/18 and requested for PRN Toradol. Medication given and tolerated well. Will reassess within 1 HR. Will continue to monitor.
[2016-11-16] MEDS ORDERED: GABAPENTIN 300 MG CAPSULE ONE (22:28)
--- NOTE | 2016-11-16 22:50 | NUR ---
PRN Toradol Reassessment Medication effective. Pt expresses reduction in pain to 4/10. No s/s of ASE/distress noted at this time. Respirations even and unlabored. Will continue to monitor.
[2016-11-17 00:11] VITALS: BP 132/84
[2016-11-17 04:08] VITALS: BP 129/81
--- NOTE | 2016-11-17 07:00 | NUR ---
End of shift note Pt is a 36 yo female, A+Ox4, presenting to [facility] for Methadone dependence. Pt has Allergies to PCN, Bees, Horse dander, and Shellfish, is on Full Code status, and on Regular diet. Pt has HX of Seizure, Fibromyalgia, Osteoarthritis, Anxiety, Bipolar, Depression, and MRSA. Pt is on Fall and Seizure precautions. Pt has completed 5 day Subutex taper, tolerated well, and is due for discharge today. Pt was given PRN Toradol @2159. Pt slept for a total of 7 HRS. Last COWS: 2 @0400. No s/s of distress noted at this time. Respirations even and unlabored. Will endorse to day shift nurse.
--- NOTE | 2016-11-17 07:45 | NUR ---
START OF SHIFT Rcvd client from ongoing nurse, client is in room, She is a/o x4, he presents with depressed mood, flat affect. She reports fatigue and mild anxiety. Client denies any SI/HI. Client is a 36 yo female admitted for withdrawal from methadone. Client is schedule for discharge this am. She completed 5 day Subutex taper, tolerated well. Last COWS 2 @ 0400. PRN Toradol 30mg IM for pain, noted effective. Client slept 7 hrs. She reports allergy to PCN, bee venom protein, horse dander, shellfish derived, full code, regular diet. Client denies any history of withdrawal-induced seizure. She is on universal precautions. Call light within reach. Side rails up x2, bed locked and in low position.
[2016-11-17] MEDS: ACETAMINOPHEN ES 500 MG TABLET PO SCH (09:00)
[2016-11-17] MEDS: DOCUSATE SODIUM 250 MG CAPSULE PO SCH (09:00)
[2016-11-17] MEDS: LAMOTRIGINE 200 MG TABLET PO SCH (09:00)
[2016-11-17] MEDS: MULTIVITAMINS,THERAPEUTIC TABLET PO SCH (09:00)
[2016-11-17] MEDS: NICOTINE 7 MG/24HR PATCH TD SCH (09:00)
[2016-11-17] MEDS: FAMOTIDINE 20 MG TABLET PO SCH (09:00)
[2016-11-17] MEDS: DULOXETINE 60 MG CAPSULE.DR PO SCH (09:00)
[2016-11-17] MEDS: CLONIDINE HCL 0.1 MG TABLET PO SCH (09:00)
[2016-11-17] MEDS: BACLOFEN 20 MG TABLET PO SCH (09:00)
[2016-11-17] MEDS: LIDOCAINE 5% PATCH TD SCH (09:01)
[2016-11-17] MEDS: LYRICA 100 MG PO SCH (09:12)
[2016-11-17] MEDS: PATIENT MAY USE OWN MED- MD OK PO SCH (09:12)
[2016-11-17 09:13] VITALS: BP 105/68
--- NOTE | 2016-11-17 10:13 | NUR ---
Discharge note Client was admitted for withdrawal from methadone. Client has a recent COWS 2. Client VS are WNL. Client LBM was 11/17/16. Client denies any SI/HI. Client verbalized her understanding of the discharge instructions. Client has no complaints at this time. Client discharge instructions, prescriptions, medications and all belongings returned to client. All needs addressed at this time. Client ID band removed, she ambulated off of unit, client left facility via [facility] for [facility].
== END 2016-11-17 10:13 | disposition other institution (70) | DRG 895 ==
LOC: SRC 20:03
PROVIDERS: ADMIT Internal Medicine; ATTEND Internal Medicine
PROC: HZ2ZZZZ Detoxification Services for Substance Abuse Treatment (ICD-10-PCS; principal; 2016-11-10)
PROC: HZ41ZZZ Group Counseling for Substance Abuse Treatment, Behavioral (ICD-10-PCS; 2016-11-11)
PROC: HZ31ZZZ Individual Counseling for Substance Abuse Treatment, Behavioral (ICD-10-PCS; 2016-11-13)
DX: F11.23 Opioid dependence with withdrawal (principal); I15.9 Secondary hypertension, unspecified; F41.1 Generalized anxiety disorder; M79.7 Fibromyalgia; Z81.8 Family history of other mental and behavioral disorders; Z81.1 Family history of alcohol abuse and dependence; Z82.49 Family history of ischemic heart disease and other diseases of the circulatory system; G89.29 Other chronic pain; F15.21 Other stimulant dependence, in remission; K59.03 Drug induced constipation; F17.210 Nicotine dependence, cigarettes, uncomplicated; E86.0 Dehydration; F90.9 Attention-deficit hyperactivity disorder, unspecified type; R79.89 Other specified abnormal findings of blood chemistry
CPT/HCPCS: 36415; 70030-TC; 80307; 83735; 84703; 85025; 86580; 86592; 86705; 86803; 87340; 87806; 93005; A9150; G0480; J1885; Q0162